=== PATIENT | female | born 1965 | race Caucasian/White ===

== ENCOUNTER → 2024-06-14 | Outpatient (CLI) | payer OTHER ==
[~2024-06-14] MED LIST: CIPRO500 MG PO; COZAAR100 MG PO; FLAGYL250 MG PO; NAPROSYN500 MG PO; OMEPRAZOLE D/R20 MG PO; OTEZLA30 MG PO; PERCOCET 325 MG1 TA2 PO; POTASSIUM20 MEQ PO; SYNTHROID0.112 MG PO; SYNTHROID0.15 MG PO
== END | disposition home or self-care (01) ==
LOC: RESCLI 14:52
PROVIDERS: ATTEND Internal Medicine
DX: E03.9 Hypothyroidism, unspecified (principal); I10 Essential (primary) hypertension; K21.9 Gastro-esophageal reflux disease without esophagitis; L40.0 Psoriasis vulgaris; Z79.899 Other long term (current) drug therapy; Z98.890 Other specified postprocedural states